=== PATIENT | female | born 1975 | race Caucasian/White ===

== ENCOUNTER 2017-02-16 13:52 | Emergency (ER) | payer MEDICARE, OTHER ==
--- NOTE | ~2017-02-16 | CT4 ---
[facility] A Service of [facility] RADIOLOGY TEXT RESULTS PATIENT: AMPARO MACDONALD LOCATION: [facility] : 71 UNIT #: [id number] AGE: [address]: Navi Rodriguez MD SEX: F ORDER DR: [id number] [facility] [address] [place], [place] [address] [id number] E MR#: [id number] Acc #: [id number] NAME: AMPARO MACDONALD. : 1975 SEX: F STUDY DATE/TIME: 02/16/2017 13:10 UNIT: [facility] ROOM: STUDY DESCRIPTION: CT Abd and Pelv Wo Cont Attending Physician: Navi Rodriguez M.D. Ordering Physician: Navi Rodriguez M.D. Primary Care Physician: Carmella Hernandez Aprn MEDICAL IMAGING REPORT This report is preliminary unless electronic signature is present EXAM CT abdomen and pelvis without contrast. INDICATIONS Right-sided palpable mass and bruising beginning last Tuesday. PROCEDURE Unenhanced CT of the abdomen and pelvis. This CT exam was performed with one or more of the following radiation dose reduction techniques: automatic exposure control, adjustment of mA and/or kV according to patient size, and iterative reconstruction. COMPARISON 07/10/2014. FINDINGS Abdomen without contrast: There is mild hepatic steatosis. The spleen, kidneys, adrenal glands, pancreas, gallbladder have an unremarkable unenhanced appearance. Bowel loops are nondilated. Appendix is normal. Previous ventral hernia repair. No evidence for reherniation. There is some bulging of fat with diastases of the rectus muscles at the site of repair, but no lou free herniation. Pelvis without contrast: No pelvic mass. No aggressive appearing bone lesion. IMPRESSION 1. Previous ventral hernia repair. There is diastasis of the rectus muscles as well as bulging of the peritoneal fat at the site of repair, but no evidence for free herniation or organized fluid collection. 2. Mild hepatic steatosis. [facility] A Service [facility] RADIOLOGY TEXT RESULTS PATIENT: AMPARO MACDONALD LOCATION: [facility] : 71 UNIT #: [id number] AGE: [address]: Navi Rodriguez MD SEX: F ORDER DR: Dictated by... Andrei Berger M.D. THIS IS AN ELECTRONICALLY VERIFIED REPORT Andrei Berger M.D. at 02/18/2017 7:14 AM EED/lydia TD: 02/16/2017 17:25 JOB #: [id number] MEDICAL IMAGING REPORT Page 1 of 1 COPY
[2017-02-16 11:53] LABS: BASOPHIL% 0.6 % (0-2.5); EOSINOPHIL# 0.2 X10e3 (0-0.7); EOSINOPHIL% 2.7 % (0.0-7.0); HEMATOCRIT 37.9 % (35.0-45.0); HEMOGLOBIN 12.3 gm/dL (12.0-16.0); LYMPHOCYTE# 1.3 X10e3 (1.0-3.5); LYMPHOCYTE% 17.6 % (17.0-45.0); MEAN CELL VOLUME 84.4 FL (83-96); MEAN CORPUSCULAR HEMOGLOBIN 27.4 PG (28-34); MEAN CORPUSCULAR HGB CONC 32.4 g/dL (30-36); MEAN PLATELET VOLUME 6.9 FL (6.5-11.5); MONOCYTE# 0.4 X10e3 (0-1.0); MONOCYTE% 5.5 % (3.0-12.0); NEUTROPHIL# 5.3 X10e3 (1.5-7.1); NEUTROPHIL% 73.6 % (40-75); PLATELET COUNT 305 X10e3 (140-420); RED BLOOD COUNT 4.48 X10e (3.90-5.30); RED CELL DISTRIBUTION WIDTH 15.1 % (11.0-15.5); WHITE BLOOD COUNT 7.2 X10e3 (4.0-10.5)
[2017-02-16 11:56] LABS: DIFF IND NO
[2017-02-16 12:19] LABS: ALBUMIN SERUM 4.3 g/dL (3.5-5.0); ALKALINE PHOSPHATASE 101 U/L (32-92); ALT (SGPT) 21 U/L (10-40); AMYLASE 13 U/L (0-46); AST (SGOT) 19 U/L (10-42); BILIRUBIN, DIRECT 0.1 mg/dL (0.0-0.2); BILIRUBIN,INDIRECT 0.3 mg/dL (0.0-0.9); BILIRUBIN,TOTAL 0.4 mg/dL (0.2-2.0); BLOOD UREA NITROGEN 15 mg/dL (9-23); CALCIUM SERUM 9.4 mg/dL (8.4-10.2); CARBON DIOXIDE 26 mmol/L (22-31); CHLORIDE 101 mmol/L (100-111); CREATININE SERUM 0.5 mg/dL (0.6-1.4); GLOM FILT RATE Estimated ABOVE60 mL/min (>60); GLUCOSE FASTING 152 mg/dL (70-110); LIPASE 15 U/L (22-51); POTASSIUM 3.8 mmol/L (3.5-5.1); PROTEIN TOTAL SERUM 7.9 g/dL (6.0-8.3); SODIUM 136 mmol/L (135-145)
[2017-02-16 12:36] LABS: URINE SOURCE CLEAN CATCH
[2017-02-16 12:45] LABS: URINE APPEARANCE CLEAR; URINE BILIRUBIN NEG (NEG); URINE BLOOD NEG (NEG); URINE COLOR YELLOW; URINE GLUCOSE NEG (NEG); URINE KETONE NEG (NEG); URINE LEUKOCYTE ESTERASE NEG (NEG); URINE NITRATE NEG (NEG); URINE PROTEIN NEG (NEG); URINE SPECIFIC GRAVITY 1.024 (1.003-1.035); URINE UROBILINOGEN 0.2 MG/DL (NEG)
[2017-02-16 12:56] LABS: CULTURE INDICATED? NO
[~2017-02-16 13:52] MED LIST: ALPRAZOLAM PO; AMOXICILLIN PO; AMOXICILLIN500 M1 PO; BACTRIM DS TABL1 TA1 PO; BACTRIM DS TABL1 TA2 PO; BENADRYL PO; CLINDAMYCIN HC300 MG PO; FLEXERIL10 M1 PO; FLEXERIL10 MG PO; HCTZ PO; IBUPROFEN PO; KEFLEX500 MG PO; LISINOPRIL PO; LORTAB 10/500 T1 TAB PO; LORTAB 5/500 TA1 TA1 PO; LORTAB 7.5-5001 TAB PO; MEDROL DOSEPAK4 MG PO; NAPROSYN500 MG PO; NEURONTIN600 MG PO; NORVASC PO; OMEPRAZOLE20 M1 PO; OMEPRAZOLE20 M2 PO; OMEPRAZOLE40 MG PO; PEN-VEE K PO; PHENERGAN PO; PREDNISONE PO; PRILOSEC20 MG PO; PRINIVIL40 MG PO; PYRIDIUM PO; REGLAN10 MG PO; TEGRETOL100 MG PO; TYLENOL #3 PO; ULTRAM PO; VICODIN 5/1 TAB 5/50 PO; VOLTAREN75 MG PO; ZANTAC PO; ZESTRIL40 MG PO; ZITHROMAX PO
== END 2017-02-16 14:20 | disposition home or self-care (01) ==
LOC: CED 13:52
PROVIDERS: Emergency Medicine
DX: R10.9 Unspecified abdominal pain (principal); I10 Essential (primary) hypertension
CPT/HCPCS: 36415; 74176; 80048; 80076; 81003; 82150; 83690; 84703; 85025; 99284

== ENCOUNTER 2017-08-02 14:08 | Emergency (ER) | payer MEDICARE, OTHER ==
[~2017-08-02] VITALS: Ht 160 cm; Wt 131.5 kg
--- NOTE | ~2017-08-02 | CR116 ---
[facility] A Service of [facility] RADIOLOGY TEXT RESULTS PATIENT: AMPARO MACDONALD LOCATION: [facility] : 71 UNIT #: [id number] AGE: [address]: Akin Ariza MD SEX: F ORDER DR: [id number] [place] [id number] E MR#: [id number] Acc #: [id number] NAME: AMPARO MACDONALD. : 1975 SEX: F STUDY DATE/TIME: 08/02/2017 15:16 UNIT: [facility] ROOM: STUDY DESCRIPTION: CR Finger 2 View Thumb Lt Attending Physician: Akin Ariza M.D. Ordering Physician: Akin Ariza M.D. Primary Care Physician: Carmella Hernandez Aprn MEDICAL IMAGING REPORT This report is preliminary unless electronic signature is present. EXAM Left thumb, 08/02/2017 HISTORY 42-year-old female with left thumb pain beginning 2 days ago after thumb was pulled back while wrestling. COMPARISON None. FINDINGS 3 views of the left thumb demonstrate no acute fracture or dislocation. Soft tissues are unremarkable. IMPRESSION Unremarkable left thumb. Dictated by... Eros Alonso M.D. THIS IS AN ELECTRONICALLY VERIFIED REPORT Eros Alonso M.D. at 08/03/2017 3:11 PM RANDELL/olesya TD: 08/03/2017 00:05 JOB #: [id number] MEDICAL IMAGING REPORT Page 1 of 1
== END 2017-08-02 16:51 | disposition home or self-care (01) ==
LOC: SED 14:08
DX: S63.642A Sprain of metacarpophalangeal joint of left thumb, initial encounter (principal); F17.210 Nicotine dependence, cigarettes, uncomplicated; K21.9 Gastro-esophageal reflux disease without esophagitis; F31.9 Bipolar disorder, unspecified; G43.909 Migraine, unspecified, not intractable, without status migrainosus; X58.XXXA Exposure to other specified factors, initial encounter; Y92.009 Unspecified place in unspecified non-institutional (private) residence as the place of occurrence of the external cause
CPT/HCPCS: 29125; 73140; 99283

== ENCOUNTER 2017-08-13 16:31 | Emergency (ER) | payer MEDICARE, OTHER | END 2017-08-13 17:45 | disposition home or self-care (01) | LOC: SED 16:31 | DX: M77.9 Enthesopathy, unspecified (principal); I10 Essential (primary) hypertension; Z91.010 Allergy to peanuts | CPT/HCPCS: 99283 ==